=== PATIENT | male | born 1995 | race Caucasian/White ===

== ENCOUNTER 2017-08-14 04:56 | Emergency (ER) | payer OTHER ==
[~2017-08-14] VITALS: Ht 188 cm; Wt 90.7 kg
[~2017-08-14 04:56] MED LIST: Miralax17 GM PO
== END 2017-08-14 05:30 | disposition home or self-care (01) ==
LOC: ER 04:56
DX: F15.10 Other stimulant abuse, uncomplicated (principal); F17.200 Nicotine dependence, unspecified, uncomplicated
CPT/HCPCS: 93005; 93010; 99283

== ENCOUNTER 2020-11-07 11:07 | Emergency (ER) | payer OTHER ==
[~2020-11-07] VITALS: Ht 188 cm; Wt 81.7 kg
[2020-12-11] MEDS ORDERED: ACETAMINOPHEN500 MG PO (18:52)
[2020-12-11] MEDS ORDERED: Crutch1 EACH XX (19:06)
== END 2020-11-07 11:30 | disposition home or self-care (01) ==
LOC: ER 11:07
DX: S90.811A Abrasion, right foot, initial encounter (principal); S90.414A Abrasion, right lesser toe(s), initial encounter; F17.210 Nicotine dependence, cigarettes, uncomplicated; X58.XXXA Exposure to other specified factors, initial encounter
CPT/HCPCS: 82947; 99283

== ENCOUNTER 2021-01-04 00:17 | Emergency (ER) | payer OTHER ==
[~2021-01-04] VITALS: Ht 188 cm; Wt 81.7 kg
[~2021-01-04 00:17] MED LIST changes: +ACETAMINOPHEN500 MG PO; +Crutch1 EACH XX
[2021-01-04] MEDS ORDERED: NAPR500 PO (01:08)
== END 2021-01-04 01:21 | disposition home or self-care (01) ==
LOC: ER 00:17
DX: M79.672 Pain in left foot (principal); F17.210 Nicotine dependence, cigarettes, uncomplicated
CPT/HCPCS: 99282; A9270

== ENCOUNTER 2021-01-14 01:34 | Emergency (ER) | payer OTHER ==
[~2021-01-14] VITALS: Ht 188 cm; Wt 81.7 kg
[~2021-01-14 01:34] MED LIST changes: +NAPR500 PO
== END 2021-01-14 04:51 | disposition left against medical advice (07) ==
LOC: ER 01:34
DX: Z53.21 Procedure and treatment not carried out due to patient leaving prior to being seen by health care provider (principal)